=== PATIENT | male | born 1945 | race Caucasian/White ===

== ENCOUNTER 2023-08-22 09:10 | Emergency (ER) | payer MEDICARE, OTHER, SELFPAY ==
--- NOTE | ~2023-08-22 | XR_ITS ---
EXAMINATION: XR chest 2V DATE: 08/22/2023 09:34 INDICATION: Left chest pain. TECHNIQUE: Frontal and lateral views of the chest were obtained. COMPARISON: None. FINDINGS: There is symmetric scarring at the lung apices. No pleural effusion or pneumothorax. The he art size is normal. There is an old healed fracture of left third rib. IMPRESSION: 1. Symmetric scarring at the lung apices. Reviewed, dictated and finalized at location A.
--- NOTE | 2023-08-22 09:12 | ECG_ITS ---
SEE SCANNED COPY FOR CONFIRMED REPORT MTDD
[2023-08-22 09:15] VITALS: PULSE 75; RESP 14; TEMP 36.3; O2SAT 98
[2023-08-22 09:17] VITALS: PULSE 71
[2023-08-22 09:18] VITALS: BP 180/106; PULSE 74; RESP 14; O2SAT 97
[2023-08-22 09:36] LABS: Basophils Percent Auto 0.7 % (0.2-1.2); Eosinophils Absolute Auto 0.2 K/mm3 (0-0.3); Eosinophils Percent Auto 4.8 % (0-4.4); Hemoglobin 15.6 g/dL (14.0-18.0); Immature Granulocyte Absolute 0.01 K/mm3 (0.00-0.031); Immature Granulocyte Percent A 0.2 % (0-0.5); Lymphocytes Absolute Auto 1.45 K/mm3 (0.9-3.2); Lymphocytes Percent Auto 31.5 % (18.3-44.2); Mean Corpuscular HGB Conc 33.9 g/dl (32-36); Mean Corpuscular Hemoglobin 29.4 pg (26-34); Mean Corpuscular Volume 86.6 fl (80-100); Mean Platelet Volume 10.1 fl (7.4-10.4); Monocytes Absolute Auto 0.4 K/mm3 (0.1-0.6); Monocytes Percent Auto 8.5 % (2.6-8.5); Neutrophils Absolute Auto 2.5 K/mm3 (1.3-6.7); Neutrophils Percent Auto 54.3 % (45.5-73.1); Platelet Count Result 216 k/mm3 (150-375); Red Blood Count 5.31 M/mm3 (4.6-6.20); Red Cell Distribution Width 13.5 % (11.5-14.5); White Blood Count 4.6 K/mm3 (4.5-10.0)
[2023-08-22 09:49] LABS: INR 0.9; Prothrombin Time 12.4 Seconds (11.1-14.7)
[2023-08-22 09:50] LABS: Partial Thromboplastin Time 31.6 Seconds (22.3-36.8)
[2023-08-22 09:51] LABS: Alanine Aminotransferase 19 U/L (6-50); Albumin Level 4.7 g/dL (3.5-5.1); Alkaline Phosphatase 84 U/L (38-126); Anion Gap 6 mmol/L (4-12); Aspartate Amino Transferase 28 U/L (17-59); Bilirubin,Total 0.8 mg/dL (0.2-1.3); Blood Urea Nitrogen 11 mg/dL (9-20); Calcium 9.9 mg/dL (8.4-10.2); Carbon Dioxide 29 mmol/L (22-30); Chloride 106 mmol/L (98-107); Estimated CRCL calculation 63 ml/min; Estimated Glomerular Filt Rate > 60; Glucose 108 mg/dL (65-110); Potassium 3.4 mmol/L (3.4-5.0); Sodium 141 mmol/L (137-145)
[2023-08-22 09:58] LABS: Troponin I < 0.012 ng/mL (0.000-0.034)
[2023-08-22] MEDS: KETOROLAC 15 MG/ML VIAL (*BKC) IV PUSH (10:12)
[2023-08-22 10:52] LABS: Lipase 62 U/L (23-300)
[2023-08-22 11:15] VITALS: BP 142/83; PULSE 55; RESP 20; O2SAT 95
[2023-08-22 12:24] VITALS: BP 111/81; PULSE 78; RESP 14; O2SAT 95
[2023-08-22 12:41] LABS: Troponin I < 0.012 ng/mL (0.000-0.034)
--- NOTE | 2023-08-22 12:52 | ED.CHESTPAIN ---
HPI - Chest Pain General Chief Complaint: Chest Pain Stated Complaint: CP, SOB Time Seen by Provider: 08/22/23 09:18 History of Present Illness HPI narrative: patient is a 77-year-old male presents ER with chest pain. Ongoing for 2 days. Sharp. Last for only a couple of seconds. It is on the left-sided chest and front side of his chest it happens at different times. No known injury. No runny nose or sore throat or productive cough. Denies fevers or chills. No hemoptysis. No history of heart disease. Blood pressure initially elevated on arrival. Related Data Home Medications Medication Instructions Recorded Confirmed omeprazole 40 mg capsule,delayed 40 mg PO DAILY 05/10/19 05/11/19 release Allergies Allergy/AdvReac Type Severity Reaction Status Date / Time No Known Allergies Allergy Verified 08/22/23 09:11 Review of Systems Review of Systems: All systems reviewed & are unremarkable except as noted in HPI and below Constitutional: Constitutional: Reports no additional constitutional complaints ENT: Reports system reviewed and no additional complaints, except as documented Cardiovascular: Cardiovascular: Reports chest pain, Denies rapid heart rate and Denies radiating jaw, neck or arm pain Respiratory: Respiratory: Reports no additional respiratory complaints Gastrointestinal: Gastrointestinal: Reports no additional gastrointestinal complaints Musculoskeletal: Musculoskeletal: Reports no additional musculoskeletal complaints [facility] Past Medical History Medical History (Updated 08/22/23 @ 12:57 by Moreno eJan MD) History of tobacco use Peptic ulcer disease Surgical History Surgical History (Updated 05/11/19 @ 22:25 by Libby Nevarez PA-C) History of tonsillectomy Family History Family History Father Multiple sclerosis Cerebrovascular accident Mother Breast cancer Social History Social History (Updated 05/11/19 @ 22:26 by Libby Nevarez PA-C) Social History: Mr. Mondragon lives in [place]. His daughter and son-in-law live at home with him. He designates his daughter, Karly Watson, as his surrogate decision maker. 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 He wishes to be a full code. He smoked about a pack of cigarettes per day and quit 4 or 5 years ago. He drinks 1 ounce of scotch a day. No drug use. Smoking status: Current every day smoker Tobacco type: e-cigarettes/vaping Additional smoking assessment comments: QUIT SMOKING CIGARETTES 4 YEARS AGO;CURRENTLY VAPES Alcohol intake: current Drinks per week: 7 Substance use: former Substance use type: does not use Last use: 7 shots/week at bedtime Gender identity (if verbalized by the patient): Male Spiritual care concerns: No Agree to blood products: Yes Exam Narrative: GENERAL: Well-appearing, well-nourished, and in no acute distress. HEAD: Normocephalic, atraumatic. ENT: Mucous membranes moist. NECK: Supple. CHEST: Clear to auscultation. No respiratory distress. HEART: Regular rate and rhythm. Normal peripheral pulses. ABDOMEN: Soft, nontender, nondistended. EXTREMITIES: Normal range of motion. No edema. SKIN: Warm, dry, no rash. NEURO: Alert and oriented x3. PSYCH: Normal mood and affect. Course Course Emergency Course: Patient resting comfortably. No pain. Troponin negative x2. Symptoms seem musculoskeletal in nature. Discharge home. Follow-up with PCP. Vital Signs Vital signs: Vital Signs Temperature 97.3 F L 08/22/23 09:15 Pulse Rate 75 08/22/23 09:15 Respiratory Rate 14 08/22/23 09:15 Pulse Oximetry 98 08/22/23 09:15 Temperature 97.3 F L 08/22/23 09:15 Pulse Rate 78 08/22/23 12:24 Respiratory Rate 14 08/22/23 12:24 Blood Pressure 111/81 08/22/23 12:24 Pulse Oximetry 95 08/22/23 12
[2023-08-22 13:09] VITALS: BP 119/91; PULSE 78; RESP 16; TEMP 36.7; O2SAT 98
== END 2023-08-22 13:14 | disposition home or self-care (01) ==
PROVIDERS: Emergency Provider Emergency Medicine
DX: R07.89 Other chest pain (principal); F17.290 Nicotine dependence, other tobacco product, uncomplicated
CPT/HCPCS: 36415; 71046; 80053; 83690; 84484; 85025; 85610; 85730; 93005; 96374; 99284; J1885